=== PATIENT | female | born 1945 | race Caucasian/White ===

== ENCOUNTER 2020-05-20 06:54 | Outpatient (NON) | payer MEDICARE, SELFPAY ==
[2020-05-20 19:24] LABS: SARS-CoV-2 RNA PCR Positive
== END 2020-05-20 06:55 ==
PROVIDERS: Nurse Practitioner Family; PCP Family Medicine; Visit Provider Family Medicine
DX: U07.1 COVID-19 (principal)
CPT/HCPCS: C9803; U0003

== ENCOUNTER → 2020-06-23 11:33 | Outpatient (CLI) | payer MEDICARE, SELFPAY ==
--- NOTE | ~2020-06-23 | MM_ITS ---
EXAMINATION: MM screening [facility] BI w howie HISTORY: Screening mammogram TECHNIQUE: Craniocaudal and mediolateral oblique 3-D tomosynthesis images were obtained and synthetic 2-D images were generated. CAD analysis was submitted and interpreted. COMPARISON: 05/20/2019 diagnostic left digital mammogram and limited left breast ultrasound 05/05/2019, 05/01/2018, 04/28/2017, 05/04/2016, 02/25/2015, 02/23/2014 bilateral digital screening ma mmogram examinations BREAST PARENCHYMAL COMPOSITION: The breasts are heterogeneously dense, which may obscure small masses . FINDINGS: Stable mild fibroglandular asymmetry, without significant change since 02/23/2014. Occasion al benign calcifications. There is no evidence of suspicious mass, calcification, or architectural di stortion to suggest malignancy in either breast. There has been no suspicious interval change. IMPRESSION: 1. No mammographic evidence of malignancy. 2. Recommend routine screening mammography in one year. BI-RADS Category 2: Benign finding(s). Reviewed, dictated and finalized at location A. E FEEDER
== END ==
PROVIDERS: PCP Family Medicine; Visit Provider Physician Assistant
DX: Z12.31 Encounter for screening mammogram for malignant neoplasm of breast (principal)
CPT/HCPCS: 77063; 77067

== ENCOUNTER → 2021-07-13 09:51 | Outpatient (CLI) | payer MEDICARE, SELFPAY ==
--- NOTE | ~2021-07-13 | MM_ITS ---
EXAMINATION: MM screening [facility] BI w howie HISTORY: Screening mammogram TECHNIQUE: Craniocaudal and mediolateral oblique 3-D tomosynthesis images were obtained and synthetic 2-D images were generated. CAD analysis was submitted and interpreted. COMPARISON: 06/23/2020, 05/20/2019, 05/05/2019 BREAST PARENCHYMAL COMPOSITION: There are scattered areas of fibroglandular density. FINDINGS: There is no evidence of suspicious mass, calcification, or architectural distortion to sug gest malignancy in either breast. There has been no suspicious interval change. IMPRESSION: 1. No mammographic evidence of malignancy. 2. Recommend routine screening mammography in one year. BI-RADS Category 1: Negative Reviewed, dictated and finalized at location A. ER HEATER
== END ==
PROVIDERS: PCP Family Medicine; Visit Provider Family Medicine
DX: Z12.31 Encounter for screening mammogram for malignant neoplasm of breast (principal)
CPT/HCPCS: 77063; 77067

== ENCOUNTER → 2021-10-28 04:59 | Outpatient (CLI) | payer MEDICARE, SELFPAY ==
[2021-10-28 12:06] LABS: SARS-CoV-2 RNA PCR Negative
== END ==
PROVIDERS: Physician Assistant; PCP Family Medicine; Visit Provider Family Medicine
DX: J02.9 Acute pharyngitis, unspecified (principal); Z20.822 Contact with and (suspected) exposure to COVID-19
CPT/HCPCS: C9803; U0003; U0005

== ENCOUNTER → 2022-03-20 11:41 | Outpatient (CLI) | payer MEDICARE, SELFPAY ==
--- NOTE | ~2022-03-20 | XR_ITS ---
EXAM: XR knee RT min 4V DATE: 03/20/2022 12:00 HISTORY: twisted knee 2 weeks ago pain medial side . COMPARISON: None available. FINDINGS: Decreased mineralization. No fracture or dislocation. Mild medial joint space narrowing. T ricompartmental osteophytosis, moderate in the lateral and patellofemoral compartments. Mild lateral patellar subluxation. IMPRESSION: No acute osseous finding in the right knee Moderate tricompartmental right knee osteoarth ritis. Reviewed, dictated and finalized at location K. 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
== END ==
PROVIDERS: PCP Family Medicine; Visit Provider Nurse Practitioner Gerontology
DX: M25.561 Pain in right knee (principal)
CPT/HCPCS: 73564

== ENCOUNTER 2022-04-18 07:45 | Outpatient (CLI) | payer MEDICARE, SELFPAY ==
--- NOTE | ~2022-04-18 | US_ITS ---
US abdomen complete DATE: 04/18/2022 08:24 INDICATION: Abdominal pain, nausea and vomiting TECHNIQUE: Real-time imaging and Doppler analysis of the abdomen COMPARISON: None FINDINGS: No hepatic or pancreatic space-occupying mass lesion is detected. Normal hepatopedal portal venous flow. There is an approximately 7 mm rounded soft tissue density within the gallbladder lumen with mild sha dowing, consistent with gallstone or sludge concretion. No abnormal thickening of the gallbladder wal l, which measures approximately 1.6 mm thickness. Negative sonographic Sterling's sign. Common bile duct measures 5 mm, normal. Normal splenic size. No renal mass lesion or hydronephrosis is detected. Normal caliber of the abdominal aorta. The inferior vena cava is unremarkable. IMPRESSION: 7 mm gallstone or sludge concretion within the gallbladder lumen No gallbladder wall thickening, negative sonographic Sterling's Reviewed, dictated and finalized at Location A. Reviewed, dictated and finalized at location B. RAL STUDIES PROGRAM CHAIR
== END 2022-04-18 07:46 | disposition home or self-care (01) ==
PROVIDERS: PCP Family Medicine; Visit Provider Nurse Practitioner
DX: R10.13 Epigastric pain (principal); R11.2 Nausea with vomiting, unspecified; K21.9 Gastro-esophageal reflux disease without esophagitis; K82.9 Disease of gallbladder, unspecified
CPT/HCPCS: 76700

== ENCOUNTER 2022-05-01 10:32 | Day surgery (SDC) | payer MEDICARE, SELFPAY ==
[2022-04-11 08:09] VITALS: BMI 24.2
[2022-05-01 11:11] VITALS: BP 152/68; PULSE 72; RESP 16; TEMP 36.7; O2SAT 100; BMI 25.2
[2022-05-01] MEDS: LACTATED RINGERS 1,000 ML 150 ML IV CONT (11:30)
--- NOTE | 2022-05-01 11:31 | WPDANESEPPF ---
Anes - Initial Pre Proc Eval Procedure: Operation Date: 05/01/22 12:45 Proposed Procedures p Esophagogastroduodenoscopy - Den Modi MD s Diagnostic Colonoscopy - Den Modi MD Date/Time: 05/01/22 11:31 Surgeon: Den Modi MD Pre Op Diagnosis: Gerd, Nausea, Vomitting, Change in Bowel Habits Patient Data Age: 77 Gender: F Height: 1.52 m Weight: 58.7 kg Last Vital Signs Temp 36.7 C 05/01/22 11:11 Pulse 72 05/01/22 11:11 Resp 16 05/01/22 11:11 BP 152/68 H 05/01/22 11:11 Pulse Ox 100 05/01/22 11:11 O2 Del Method Room Air 05/01/22 11:11 Allergies Allergy/AdvReac Type Severity Reaction Status Date / Time No Known Allergies Allergy Verified 05/01/22 11:13 Home Medications Medication Instructions Recorded Confirmed Type cholecalciferol (vitamin D3) 50 50 mcg PO DAILY 11/08/20 04/25/22 History mcg (2,000 unit) capsule multivitamin 1 tablet PO DAILY 11/08/20 04/25/22 History red yeast rice 600 mg capsule 600 mg PO DAILY 11/08/20 04/25/22 History zinc 50 mg tablet 50 mg PO DAILY 11/08/20 04/25/22 History azelastine 137 mcg (0.1 %) nasal 1 spray intranasal Q12H #30 mL 02/23/22 04/25/22 Rx spray aerosol fluticasone propionate 50 2 spray intranasal DAILY #16 grams 02/23/22 04/25/22 Rx mcg/actuation nasal spray,suspension levothyroxine 50 mcg tablet See Rx Instructions .Route 02/23/22 04/25/22 Rx .COMPLEX #90 tabs losartan 25 mg tablet See Rx Instructions .Route 02/23/22 04/25/22 Rx .COMPLEX #90 tabs triamterene 37.5 See Rx Instructions .Route 02/23/22 04/25/22 Rx mg-hydrochlorothiazide 25 mg .COMPLEX #90 caps capsule omeprazole 20 mg capsule,delayed 40 mg PO DAILY 04/04/22 04/25/22 History release peg 3350-electrolytes 236 240 ml PO Q10M #4,000 mL 04/11/22 04/25/22 Rx gram-22.74 gram-6.74 gram-5.86 gram solution (Golytely) calcitonin (salmon) 200 See Rx Instructions .Route 04/24/22 04/25/22 Rx unit/actuation nasal spray .COMPLEX #11.1 mL Patient hx anesthesia problems: none Family hx anesthesia problems: none Results Review: All pre-operative results and documents have been reviewed as part of the pre-operative evaluation. [facility] Past Medical History Medical History Abdominal cramping Age related osteoporosis Arthritis of right knee Benign hypertension Benign reactive hypertension Change in bowel habits Colon cancer screening Compensated hypothyroidism Epigastric pain Gallstones Hypertensive kidney disease Lumbar spondylosis Mixed hyperlipidemia Nausea and vomiting Family History Family History Mother Family history of premature coronary heart disease, Onset Age: 67 Hypertension Family history of elevated blood lipids Family history of chronic obstructive pulmonary disease Patient's mother is Father Heart disease Family history of elevated blood lipids Social History Social History Social History: Smoking status: Never smoker Second hand tobacco smoke exposure: No Alcohol intake: current Substance use: never Substance use type: does not use Living arrangements: alone Gender identity (if verbalized by the patient): Female Sexual Orientation (if Verbalized by the Patient): Straight or Heterosexual Spiritual care concerns: No Anes - Eval Final PreProcedure Day of Procedure 05/01/22 11:31 Patient weight: normal Heart: regular rate and rhythm Lungs: clear to auscultation Airway: Mallampati scale class II Neurological: alert and oriented Last oral intake: >/= 8 hours ASA classification: II Emergent: no Anesthetic plan: proceed Anesthesia type and monitoring: general GIVS and standard monitoring Results Review: All pre-operative results and documents have been reviewed as part of the pre-opera
--- NOTE | 2022-05-01 11:58 | WPDHPUPDATE1 ---
History and Physical Update Update Date/Time: 05/01/22 11:58 History and Physical has been reviewed, including an updated exam of the patient. There are NO changes in the patient's condition. Risks, benefits, and alternatives have been discussed and questions answered. Patient agrees to proceed with procedure.
[2022-05-01 13:44] VITALS: BP 109/65; PULSE 76; RESP 16; O2SAT 100
[2022-05-01 13:54] VITALS: BP 105/81; PULSE 66; RESP 16; O2SAT 100
--- NOTE | 2022-05-01 13:57 | WPDANESPN ---
Anes - Prog Note Post-Op Date/Time: 05/01/22 13:57 Cardiovascular status: normal Respiratory status: normal Airway patency: baseline Mental status: baseline Post-Op hydration status: normal Vital Signs: Last Vital Signs Temp 36.7 C 05/01/22 11:11 Pulse 72 05/01/22 11:11 Resp 16 05/01/22 11:11 BP 152/68 H 05/01/22 11:11 Pulse Ox 100 05/01/22 11:11 O2 Del Method Room Air 05/01/22 11:11 Pain Score (VAS): 0/10 I/O: Intake & Output 04/30/22 05/01/22 05/01/22 23:59 07:59 15:59 Intake Total 900 Balance 900 Patient Feedback: Patient satisfied with anesthetic care.
[2022-05-01 14:04] VITALS: BP 135/65; PULSE 67; RESP 16; O2SAT 100
== END 2022-05-01 14:20 | disposition home or self-care (01) ==
PROVIDERS: PCP Family Medicine; Visit Provider Internal Medicine Gastroenterology
PROC: 0DJ08ZZ Inspection of Upper Intestinal Tract, Via Natural or Artificial Opening Endoscopic (ICD-10-PCS; CPT 43235; principal; 2022-05-01 12:45)
PROC: 0DJD8ZZ Inspection of Lower Intestinal Tract, Via Natural or Artificial Opening Endoscopic (ICD-10-PCS; CPT 45378; 2022-05-01 12:45)
DX: R19.4 Change in bowel habit (principal)
CPT/HCPCS: 45378; 43239

== ENCOUNTER → 2022-07-05 10:46 | Outpatient (CLI) | payer MEDICARE, SELFPAY ==
--- NOTE | ~2022-07-05 | XR_ITS ---
Supine views of the abdomen Clinical history: Constipation Findings: Bowel gas pattern is nonspecific. Moderate to large amount of stool present. Cholecystectom y clips noted. No evidence for obstruction or free air. No abnormal mass lesion or calcification is s een. Osseous structures are intact. Impression: Moderate to large amount of stool, consistent with constipation. Reviewed, dictated and finalized at location . 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
== END ==
PROVIDERS: PCP Family Medicine; Visit Provider Nurse Practitioner Gerontology
DX: K59.00 Constipation, unspecified (principal); R10.9 Unspecified abdominal pain
CPT/HCPCS: 74018

== ENCOUNTER → 2022-07-13 10:57 | Outpatient (CLI) | payer MEDICARE, SELFPAY ==
--- NOTE | ~2022-07-13 | DEXA_ITS ---
Bone Density Report Name: EDWIN LOYD Age: 77 Sex: Female Ethnicity: White Date of : 1945 Indication: osteopenia; height loss; postmenopausal Referring Provider: KRISHAN CORDOVA Study: Bone densitometry was performed. Exam Date: July 13, 2022 Accession number: [id number] Bone Density: Region BMD T-score Z-score Classification AP Spine (L1-L4) 1.086 0.4 2.8 Normal Femoral Neck (Left) 0.598 -2.3 -0.1 Osteopenia Total Hip (Left) 0.749 -1.6 0.3 Osteopenia Femoral Neck (Right) 0.615 -2.1 0.0 Osteopenia Total Hip (Right) 0.732 -1.7 0.1 Osteopenia Total Hip Mean 0.741 -1.7 0.2 Osteopenia World Health Organization criteria for BMD impression classify patients as: Normal (T-score at or above -1.0), Osteopenia (T-score between -1.0 and -2.5), or Osteoporosis (T-score at or below -2.5). 10-year Fracture Risk(1): Major Osteoporotic Fracture 16% Hip Fracture 4.6% Reported Risk Factors: [place] (), Neck BMD=0.598, BMI=25.3 (1) FRAX(R) Version 3.08. Fracture probability calculated for an untreated patient. Fracture probability may be lower if the patient has received treatment. Previous Exams: Region Exam Age BMD T-score BMD Change BMD Change Date g/cm2 vs Baseline vs Previous AP Spine(L1-L4) 07/13/2022 77 1.086 0.4 0.029* 0.029* 10/09/2018 73 1.057 0.1 Total Hip(Left) 07/13/2022 77 0.749 -1.6 -0.007 -0.007 10/09/2018 73 0.757 -1.5 Total Hip(Right) 07/13/2022 77 0.732 -1.7 -0.033* -0.033* 10/09/2018 73 0.765 -1.4 *Denotes significance at 95% confidence level, LSC for AP Spine = 0.022 g/cm2, LSC for Total Hip = 0.027 g/cm2 Clinical Information Provided by Patient: Has used the following medications: Vitamin D, Calcium Patient maximum height was 62 Menopause Age: 46 Drinks caffeinated beverages Onset of menses at age 13 Number of children 1 Impression: The patient has low bone mass, based on the Left Femoral Neck T-score. The patient has an estimated ten-year risk of hip fracture of 4.6% and an estimated ten-year risk of major fracture of 16%, based on the WHO FRAX algorithm. The BMD for the Total Hip(Right) decreased, changing by -0.033 since the last DXA exam. Discussion: BONE DENSITY IS LOW AT ONE OR MORE SKELETAL SITES. THE PATIENT'S BMD AND CLINICAL RISK FACTORS CONTRIBUTE TO THIS PATIENT'S INCREASED RISK OF FRACTURE. This patient's lowest
== END ==
PROVIDERS: PCP Family Medicine; Visit Provider Nurse Practitioner Gerontology
DX: Z78.0 Asymptomatic menopausal state (principal); M85.852 Other specified disorders of bone density and structure, left thigh; M85.851 Other specified disorders of bone density and structure, right thigh
CPT/HCPCS: 77080

== ENCOUNTER 2022-08-15 08:35 | Outpatient (CLI) | payer MEDICARE, SELFPAY ==
--- NOTE | ~2022-08-15 | NM_ITS ---
EXAM: NM gastric emptying study DATE: 08/15/2022 13:18 INDICATION: Daily nausea, vomiting, bloating and belching. TECHNIQUE: A gastric emptying study was performed using the methodology of Monserrat AGUILERA, et al. J Nucl Med 2007; 48:568-572. The patient was given a meal consisting of 2 scrambled eggs labeled with 1.0 m Ci Tc-99m sulfur colloid, 2 slices of toast, two packages of jam, and approximately 120 mL of water. Simultaneous anterior and posterior 1-min images of the abdomen were obtained with the patient supine at multiple time points over a total period of 4 hours. The geometric mean of anterior and posterior views was determined, and the percentage retention was calculated for each time point. COMPARISON: None. FINDINGS: Gastric retention of the radiotracer-labeled meal was 68%, 56%, and 35% at the 1-hour, 2-hour, and 4- hour time points, respectively. With this technique, apparent rapid gastric emptying is suggested by <30% gastric retention at 1 hour. Delayed gastric emptying is defined by gastric retention of >90% at 1 hour, >60% retention at 2 hours, or >10% retention at 4 hours. IMPRESSION: 1. Delayed gastric emptying. Reviewed, dictated and finalized at location A.
== END 2022-08-15 08:36 | disposition home or self-care (01) ==
PROVIDERS: PCP Family Medicine; Visit Provider Nurse Practitioner
DX: R11.2 Nausea with vomiting, unspecified (principal); R14.2 Eructation; R14.0 Abdominal distension (gaseous); K58.1 Irritable bowel syndrome with constipation; K21.9 Gastro-esophageal reflux disease without esophagitis; K30 Functional dyspepsia
CPT/HCPCS: 78264; A9541

== ENCOUNTER 2022-08-16 07:07 | Outpatient (CLI) | payer MEDICARE, SELFPAY ==
--- NOTE | ~2022-08-16 | CT_ITS ---
EXAMINATION: CT abdomen pelvis w con INDICATION: Nausea and vomiting TECHNIQUE: Computed tomographic images of the abdomen and pelvis were obtained after the administrati on of 100 cc of Omnipaque 350 intravenous contrast. The dose-length product (DLP) was 264.05 mGy-cm. Automated exposure control and iterative reconstruction technique were employed. COMPARISON: None available FINDINGS: Minimal dependent atelectasis is present in the lung bases. The heart size is normal. The g allbladder is surgically absent. There is a 7 mm hemangioma of the right hepatic lobe. There is a 10 mm cyst of the left hepatic lobe. Subtle areas of low attenuation in the spleen, measuring up to 4 mm , likely represent cysts or lymphangiomas. The pancreas and adrenal glands are normal. The kidneys ar e unremarkable. Colonic diverticulosis is present without evidence of diverticulitis. No pathological ly enlarged abdominal or pelvic lymph nodes are identified. No free intraperitoneal gas or evidence o f bowel obstruction. There is severe lumbar spondylosis. IMPRESSION: 1. No CT correlate for the patient's symptoms. Reviewed, dictated and finalized at location B.
[2022-08-16 07:29] LABS: Estimated Glomerular Filt Rate 54
== END 2022-08-16 07:08 | disposition home or self-care (01) ==
PROVIDERS: PCP Family Medicine; Visit Provider Nurse Practitioner
DX: K21.9 Gastro-esophageal reflux disease without esophagitis (principal); K58.1 Irritable bowel syndrome with constipation; R11.2 Nausea with vomiting, unspecified; R14.0 Abdominal distension (gaseous); R14.2 Eructation
CPT/HCPCS: 74177; Q9967

== ENCOUNTER → 2022-12-06 10:45 | Outpatient (CLI) | payer MEDICARE, SELFPAY ==
--- NOTE | ~2022-12-06 | MM_ITS ---
EXAMINATION: MM screening [facility] BI w howie HISTORY: Screening mammogram TECHNIQUE: Craniocaudal and mediolateral oblique 3-D tomosynthesis images were obtained and synthetic 2-D images were generated. CAD analysis was submitted and interpreted. COMPARISON: 07/13/2021, 06/23/2020, 05/20/2019, 05/05/2019 BREAST PARENCHYMAL COMPOSITION: There are scattered areas of fibroglandular density. FINDINGS: No suspicious mass, calcification, or architectural distortion are identified in either jessica ast to suggest malignancy. There has been no suspicious interval change. IMPRESSION: 1. No mammographic evidence of malignancy. 2. Recommend routine screening mammography in one year. BI-RADS Category 1: Negative Reviewed, dictated and finalized at location A.
== END ==
PROVIDERS: PCP Physician Assistant; Visit Provider Physician Assistant
DX: Z12.31 Encounter for screening mammogram for malignant neoplasm of breast (principal)
CPT/HCPCS: 77063; 77067

== ENCOUNTER 2023-06-01 09:40 | Outpatient (CLI) | payer MEDICARE, SELFPAY ==
--- NOTE | ~2023-06-01 | XR_ITS ---
XR knee RT min 4V DATE: 06/01/2023 10:30 INDICATION: Bursitis TECHNIQUE: Bertrand and standing AP, PA and lateral views COMPARISON: 03/20/2022 right knee FINDINGS: There is osteopenia. There is severe joint space narrowing and prominent periarticular spurring of the patellofemoral join t, particularly laterally. There is moderate periarticular spurring at the lateral compartment. Medial and lateral compartment j oint spaces are relatively preserved No fracture or dislocation or joint effusion. No periosteal reaction or bone destruction. No radiopaq ue intra-articular loose body or chondrocalcinosis. IMPRESSION: Osteoarthritis, severe at the patellofemoral joint Osteopenia Reviewed, dictated and finalized at location B. ER WORKER
== END 2023-06-01 09:41 | disposition home or self-care (01) ==
PROVIDERS: PCP Family Medicine; Visit Provider Orthopaedic Surgery
DX: M70.51 Other bursitis of knee, right knee (principal); M17.11 Unilateral primary osteoarthritis, right knee; M85.861 Other specified disorders of bone density and structure, right lower leg
CPT/HCPCS: 73564

== ENCOUNTER 2023-10-22 09:13 | Outpatient (CLI) | payer MEDICARE, SELFPAY ==
--- NOTE | ~2023-10-22 | US_ITS ---
EXAMINATION: US carotid duplex BI DATE: 10/22/2023 09:49 INDICATION: Negative TECHNIQUE: Grayscale, color Doppler, and pulsed Doppler images of the cervical carotid arteries were obtained. The degree of vessel stenosis is placed in one of the following categories: normal, <50%, 5 0-69%, >=70% but less than near-occlusion, near-occlusion, or total occlusion. Note that percent sten osis relative to normal distal artery lumen diameter is indirectly measured from velocity measurement s as described by Tadeo, et al. Radiology 2003; 229:340-346. Notes: Normal: Peak systolic velocity <125 centimeters/sec and no plaque <50%. Peak systolic velocity <125 ( EDV <40; ICA/CCA PSV ratio <2.0; used these factors only a tandem lesions or low cardiac output or co ntralateral disease) 50-69 %: PSV 125-230 (EDV 40-100; ratio 2-4) >= 70% but less than near occlusion: PSV greater than 230 (EDV > 100; ratio> 4.0) Near Occlusion: PSV that is variable; markedly narrowed lumen Occlusion: Absent flow on color/spectral Doppler and no lumen on michelle scale. COMPARISON: Ultrasound dated 11/16/2015. FINDINGS: RIGHT: The right common carotid artery (CCA) peak systolic velocity (PSV) is 121 cm/s. The right internal ca rotid artery (ICA) PSV is 98 cm/s. The right ICA end-diastolic velocity (EDV) is 34 cm/s. The right I CA/CCA PSV ratio is 0.8. The external carotid artery (ECA) PSV is 125 cm/s. There is antegrade flow i n the right vertebral artery. LEFT: The left CCA PSV is 124 cm/s. The left ICA PSV is 123 cm/s. The left ICA EDV is 34 cm/s. The left ICA /CCA PSV ratio is 1.0. The ECA PSV is 69 cm/s. There is antegrade flow in the left vertebral artery. IMPRESSION: 1. Less than 50% stenosis in the right internal carotid artery by sonographic criteria. 2. Less than 50% stenosis in the left internal carotid artery by sonographic criteria. Reviewed, dictated and finalized at location B. IMPRESSION: 1. Less than 50% stenosis in the right internal carotid artery by sonographic c riteria. 2. Less than 50% stenosis in the left internal carotid artery by sonographic cr iteria.
== END 2023-10-22 09:14 | disposition home or self-care (01) ==
PROVIDERS: PCP Family Medicine; Visit Provider Family Medicine
DX: R55 Syncope and collapse (principal); I65.23 Occlusion and stenosis of bilateral carotid arteries
CPT/HCPCS: 93880

== ENCOUNTER 2023-11-13 13:14 | Outpatient (CLI) | payer MEDICARE, SELFPAY ==
--- NOTE | 2023-11-13 13:20 | ECHO_ITS ---
Patient Info Name: Shannon Buitrago Age: 78 years : 1945 Gender: Female Ht: 60 in Wt: 132 lbs BSA: 1.61 m2 HR: 78 bpm BP: 143 / 80 mmHg Technical Quality: Good Exam Date: 11/13/2023 1:36 PM Exam Location: Echo Lab Patient Status: Outpatient Admit Date: 11/13/2023 Staff Ordering Physician: Mariia Llanos MD Scroll Assembler: Son Waddell RDCS Attending Provider: Mariia Llanos MD Referring Physician: Romi KC; Exam Type: CA echo doppler color flow Study Info Indications R55 - Syncope and collapse Complete two-dimensional, color flow and Doppler transthoracic echocardiogram is performed. Summary 1. Complete two-dimensional, color flow and Doppler transthoracic echocardiogram is performed. 2. Left ventricular chamber dimension is normal. 3. Left ventricular systolic function is normal, estimated at 60-65%. 4. The left ventricular diastolic function is normal. 5. E/e' 6 is not elevated. 6. There is mild mitral valve regurgitation. 7. There is trace tricuspid valve regurgitation. 8. No pulmonary hypertension, estimated pulmonary arterial systolic pressure is 13 mmHg. Left Ventricle E/e' 6 is not elevated. Left ventricular chamber dimension is normal. Left ventricular systolic function is normal, estimated at 60-65%. The left ventricular diastolic function is normal. Right Ventricle Right ventricular systolic function is normal and with normal TAPSE 2.1 cm. Right ventricular chamber dimension is normal. Left Atria Left atrial chamber dimension is normal. Right Atria Right atrial chamber dimension is normal. Aortic Valve The aortic valve is trileaflet. There is no aortic valve stenosis. There is no aortic valve regurgitation. Pulmonic Valve There is no pulmonic regurgitation. Mitral Valve There is no mitral valve stenosis. There is mild mitral valve regurgitation. Tricuspid Valve There is trace tricuspid valve regurgitation. No pulmonary hypertension, estimated pulmonary arterial systolic pressure is 13 mmHg. Pericardium/Pleural There is no pericardial effusion. Inferior Vena Cava Normal inferior vena cava with >50% collapse upon inspiration consistent with normal right atrial pressure, 5 mmHg. Aorta The aortic root size at the sinus of Valsalva is normal. Left Ventricular Outflow Tract Name Value Normal LVOT 2D LVOT Diameter 2.1 cm LVOT Doppler LVOT Peak Gradient 3 mmHg LVOT Mean Gradient 2 mmHg LVOT VTI 21 cm LVOT VTI/AV VTI Ratio 0.8 LVOT Stroke Volume 69 ml LVOT CO 5.0 l/min LVOT CI 3.1 l/min/m2 Pulmonic Valve Name Value Normal PV Doppler PV Peak Gradient 2 mmHg Mitral Valve Name
== END 2023-11-13 13:15 | disposition home or self-care (01) ==
LOC: ANHCARD 13:15
PROVIDERS: PCP Family Medicine; Visit Provider Family Medicine
DX: R55 Syncope and collapse (principal); I34.0 Nonrheumatic mitral (valve) insufficiency
CPT/HCPCS: 93306

== ENCOUNTER 2024-02-18 16:21 | Outpatient (CLI) | payer MEDICARE, SELFPAY ==
[2024-02-18 17:50] LABS: Influenza A QL RT-PCR Negative (Negative); Influenza B QL RT-PCR Negative (Negative); RSV RNA, RT-PCR Negative (Negative); SARS-CoV-2 RNA PCR Positive (Negative)
== END 2024-02-18 16:22 | disposition home or self-care (01) ==
LOC: ANHLAB 16:22
PROVIDERS: PCP Family Medicine; Visit Provider Physician Assistant
DX: J02.9 Acute pharyngitis, unspecified (principal)
CPT/HCPCS: 87637

== ENCOUNTER 2024-02-25 10:53 | Outpatient (CLI) | payer MEDICARE, SELFPAY ==
--- NOTE | ~2024-02-25 | MM_ITS ---
EXAMINATION: MM screening [facility] BI w howie HISTORY: Screening TECHNIQUE: Craniocaudal and mediolateral oblique 3-D tomosynthesis images were obtained and synthetic 2-D images were generated. CAD analysis was submitted and interpreted. COMPARISON: Comparison to multiple prior studies sequentially, with oldest reviewed study dated 04/13. BREAST PARENCHYMAL COMPOSITION: Not dense: There are scattered areas of fibroglandular density. FINDINGS: There is no evidence of suspicious mass, calcification, or architectural distortion to sugg est malignancy in either breast. There has been no suspicious interval change. IMPRESSION: 1. No mammographic evidence of malignancy. 2. Recommend routine screening mammography in one year. BI-RADS Category 1: Negative Reviewed, dictated and finalized at location B.
== END 2024-02-25 10:54 | disposition home or self-care (01) ==
PROVIDERS: PCP Physician Assistant; Visit Provider Physician Assistant
DX: Z12.31 Encounter for screening mammogram for malignant neoplasm of breast (principal)
CPT/HCPCS: 77063; 77067

== ENCOUNTER 2024-07-23 13:45 | Outpatient (CLI) | payer MEDICARE, SELFPAY ==
--- NOTE | ~2024-07-23 | XR_ITS ---
XR shoulder LT min 2V Ordering provider: Amy Reyes PA-C History: . M25.512 - Pain in left shoulder . Comparison: None. FINDINGS: BONES: No acute fracture or dislocation. JOINT SPACES: The acromioclavicular joint shows mild osteoarthritic changes. The glenohumeral joint i s normal. SOFT TISSUES: Normal. IMPRESSION: No acute osseous abnormality left shoulder. 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
--- OUTSIDE RECORDS SUMMARY | 2024-07-23 15:25 | XMS_ITS | Clinical Summary ---
Author Organization [facility] Address [address] [place] [id number] Care Team Providers Care Dental Surgery Doctor Name Role Phone Unavailable Primary Care Provider Unavailabl e Social History Tobacco Use Types Packs/Day Years Used Date Smoking Tobacco: Never Assessed Comments Unknown Sex and Gender Information Value Date Recorded Sex Assigned at Not on file Legal Sex Female 7:05 PM CDT Gender Identity Not on file Sexual Orientation Not on file Plan of Treatment Health Maintenance Due Date Last Done Comments Hepatitis C 1963 DTaP, Tdap and Td Vaccines ( 1 - Tdap) 1965 Zoster Vaccines (1 of 2) 1996 Dexa Scan (General) 2011 Pneumococcal Vaccine: 65+ Ye ars (1 of 1 - PCV) 2011 RSV Immunization or 60+ Years (1 - 1-dose 75+ series) 2021 COVID-19 Vaccine (2023-2 5 season) 2024 Influenza Adult (#1) 2024 Meningococcal B Vaccine Aged Out No l onger eligible based on patient's age to complete this topic Meningococcal Vaccine Aged Out No tate jacob eligible based on patient's age to complete this topic RSV Immunizations Under 20 Months Aged Out No longer eligible based on patient's age to complete this topic
--- OUTSIDE RECORDS SUMMARY | 2024-07-23 15:25 | XMS_ITS | Clinical Summary ---
Author Organization [employer] [id number] [facility] Address [address] [place] [address] Care Team Providers Care Spring Production Supervisor Name Role Phone Mariia Llanos MD Primary Care Provider [phone]- [phone] Allergies No known active allergies Medications losartan (COZAAR) 25 mg tablet daily. 2 Active levothyroxine 50 mcg tablet daily. 2 Active triamterene-hyd roCHLOROthiazid e (DYAZIDE) 37.5-25 mg capsule daily in the morning. 2 Active calcitonin, [place], (FORTICAL) 200 unit/actuation [place], Non-Aerosol daily. Alternating nostrils 2 Active cholecalciferol (vitamin D3) 50 mcg (2,000 unit) capsule Take by mouth daily. Active famotidine (PEPCID) 20 mg tablet Take 20 mg by mouth daily. Active rosuvastatin (CRESTOR) 5 mg tablet Take 5 mg by mouth daily. Active fluticasone propionate (FLONASE) 50 mcg/spray [place], Suspension nasal inhaler Administer 2 Sprays in each nostril daily. Active Active Problems Problem Noted Date Diagnosed Date Irritable bowel syndrome 03/21/2023 Biliary colic 06/01/2022 Biliary dyskinesia 06/01/2022 Gall stones 05/28/2022 Symptomatic cholelithiasis 05/27/2022 Colitis 05/27/2022 Hypertension 05/27/2022 Hypothyroidism 05/27/2022 GERD (gastroesophageal reflux disease) Leukocytosis (leucocytosis) 05/27/2022 Hyponatremia 05/27/2022 Abdominal pain 05/27/2022 Vitiligo 03/13/2016 Basal cell carcinoma (BCC) of upper extremity Skin neoplasm 08/25/2015 Encounters Date Type Department Care Team Description 07/08/2024 External Device Data [facility] ABSTRACTION Provider, Abstract 06/17/2024 External Device Data [facility] ABSTRACTION Provider, Abstract 06/04/2024 External Device Data [facility] ABSTRACTION Provider, Abstract 06/03/2024 External Device Data [facility] ABSTRACTION Provider, Abstract 05/27/2024 External Device Data [facility] ABSTRACTION Provider, Abstract 05/20/2024 External Device Data [facility] ABSTRACTION Provider, Abstract from Last 3 Months Family History Medical History Relation Name Comments Heart Disease Father High Cholesterol Father Other Father COPD Heart Disease Mother High Cholesterol Mother Hypertension Mother Relation Name Status Comments Father Mother Social History Tobacco Use Types Packs/Day Years Used Date Smoking Tobacco: Never Smokeless Tobacco: Never Tobacco Cessation:Counseling Given: Not Answered Alcohol Use Standard Drinks/Week Comments Yes 1 (1 standard drink = 0.6 oz pur e alcohol) Comments No Sex and Gender Information Value Date Recorded Sex Assigned at Not on file Legal Sex Female 3:56 PM [employer] Gender Identity Not on file Sexual Orientation Not on file Last Filed Vital Signs Vital Sign Reading Time Taken Comments Blood Pressure 141/88 07/30/2023 2:27 PM CDT Pulse 77 07/30/2023 2:27 PM CDT Temperature 36.4 C (97.5 F) 07/30/2023 2:27 PM CDT Respiratory Rate 15 06/07/2022 12:10 PM [employer] Oxygen Saturation 98% 07/30/2023 2:27 PM CDT Inhaled Oxygen Concentration - - Weight 58 kg (127 lb 12.8 oz) 07/30/2023 2:27 PM CDT Height 152.4 cm (5') 07/30/2023 2:27 PM CDT Body Mass Index 24.96 07/30/2023 2:27 PM CDT Plan of Treatment Health Maintenance Due Date Last Done Comments DTAP/TDAP/TD VACCINES (1 - Tdap) 1965 PNEUMOCOCCAL VACCINE 50+ YEARS (1 of 1 - PCV) 03/28/19 96 ZOSTER VACCINE (1 of 2) 1996 OSTEOPOROSIS SCREENING 2011 RSV VACCINE (60+ or ) (1 - 1-dose 75+ series) 2021 INFLUENZA VACCINE (#1) 2023 Medical Devices Implanted Type Area Aviation Project Engineer Device Identifier Shelf Expiration Date Model / Serial / Lot Clip Ti Med/Lg [id number] - Csc - [id number] Implanted:Qty: 3 on 06/07/2022 by Den Barrow DO at [facility] N/A: Abdomen TELEFLEX- WECK CLOSURE SYS 11/27/2026 [id number] / / [id number] Insurance [employer]ET[employer] PPO MCR RX OPTUM RX Member Subscriber Plan / Payer (Ef fective 2022-Present) Name:Shannon Buitrago Relation to Subscriber:Self Name:MinnaGaylara Subscriber ID:Not on file Payer ID:Not on file Group ID:[id number] Type:RX Medicare Part D Address: [address] Advance Directives For more information, please contact: [phone] Documents on File Type Date Recorded Patient Restaurant Assistant Manager Expl anation Advance Directive POA 06/05/2022 8:19 AM A dvance Directive POA * Full Code (Latest Code Status on File) Date Activated Date Inactivated Comments 05/27/2022 6:55 AM 05/28/2022 8:15 PM Care Teams Spring Production Supervisor Relationship Specialty Start Date End Date Mariia Llanos MD PCP - General Family Practice 05/25/22
--- OUTSIDE RECORDS SUMMARY | 2024-07-23 15:25 | XMS_ITS ---
Author Organization [facility] [id number] [facility] Address [address] [place] [address] Care Team Providers Care Supervisor Wet Pour Name Role Phone Mariia Llanos MD Primary Care Provider [phone]- [phone] Active Problems Problem Noted Date Diagnosed Date Irritable bowel syndrome 03/21/2023 Biliary colic 06/01/2022 Biliary dyskinesia 06/01/2022 Gall stones 05/28/2022 Symptomatic cholelithiasis 05/27/2022 Colitis 05/27/2022 Hypertension 05/27/2022 Hypothyroidism 05/27/2022 GERD (gastroesophageal reflux disease) Leukocytosis (leucocytosis) 05/27/2022 Hyponatremia 05/27/2022 Abdominal pain 05/27/2022 Vitiligo 03/13/2016 Basal cell carcinoma (BCC) of upper extremity Skin neoplasm 08/25/2015 Current Treatment and Therapy Plans No current plan information found. Past Treatment and Therapy Plans No past plan information found. Lifetime Dose Tracking * Chemical Lifetime Dose Automatic Entry Manual Entr y Effective Dose 13.7 mSv 13.7 mSv 0 mSv Total DLP 815 DLP 815 DLP 0 DLP CTDIvol Max 16.9 mGy 16.9 mGy 0 mGy CTDIvol Min 16.9 mGy 16.9 mGy 0 mGy
== END 2024-07-23 13:46 | disposition home or self-care (01) ==
PROVIDERS: PCP Family Medicine; Visit Provider Physician Assistant Medical
DX: M19.012 Primary osteoarthritis, left shoulder (principal)
CPT/HCPCS: 73030

== ENCOUNTER 2024-12-08 10:42 | Outpatient (CLI) | payer MEDICARE, SELFPAY ==
--- NOTE | ~2024-12-08 | DEXA_ITS ---
Bone Density Report Name: EDWIN LYOD Age: 79 Sex: Female Ethnicity: White Date of : 1945 Indication: osteopenia; monitoring treatment; height loss; Referring Provider: KRISHAN MILLER Study: Bone densitometry was performed. Exam Date: December 08, 2024 Accession number: [id number] Bone Density: Region BMD T-score Z-score Classification AP Spine(L1-L4) 1.106 0.5 3.1 Normal Femoral Neck (Left) 0.591 -2.3 -0.1 Osteopenia Total Hip (Left) 0.719 -1.8 0.2 Osteopenia Femoral Neck (Right) 0.598 -2.3 0.0 Osteopenia Total Hip (Right) 0.723 -1.8 0.2 Osteopenia Total Hip Mean 0.721 -1.8 0.2 Osteopenia World Health Organization criteria for BMD impression classify patients as: Normal (T-score at or above -1.0), Osteopenia (T-score between -1.0 and -2.5), or Osteoporosis (T-score at or below -2.5). 10-year Fracture Risk: FRAX not reported because: Treated for osteoporosis Previous Exams: -- Region Exam Age BMD T-score BMD Change BMD Change Date g/cm2 vs Baseline vs Previous -- AP Spine (L1-L4) 12/08/2024 79 1.106 0.5 4.6%* 1.8% 07/13/2022 77 1.086 0.4 2.8%* 2.8%* 10/09/2018 73 1.057 0.1 Total Hip(Left) 12/08/2024 79 0.719 -1.8 -5.0%* -4.1%* 07/13/2022 77 0.749 -1.6 -1.0% -1.0% 10/09/2018 73 0.757 -1.5 Total Hip(Right) 12/08/2024 79 0.723 -1.8 -5.6%* -1.3% 07/13/2022 77 0.732 -1.7 -4.3%* -4.3%* 10/09/2018 73 0.765 -1.4 -- *Denotes significance at 95% confidence level, LSC for AP Spine = 0.022 g/cm2, LSC for Total Hip = 0.027 g/cm2 Clinical Information Provided by Patient: Is being treated for osteoporosis Has used the following medications: Fosamax (i.e. alendronate), Vitamin D, Calcium Patient maximum height was 62 Menopause Age: 46 Drinks caffeinated beverages Onset of menses at age 11 Number of children 1 Impression: The patient has low bone mass, based on the Left Femoral Neck T-score. The BMD for the Total Hip(Left) decreased, changing by -4.1% since the last DXA exam. Discussion: SIGNIFICANT BONE LOSS OBSERVED. Adherence to therapy (including calcium and vitamin D intake) should be assessed. If compliance is not a factor, review management and exclusion of secondary causes of bone loss. It is important to ask patients whether they are taking their medications and to encourage continued and appropriate compliance with their osteoporosis therapies to reduce fracture risk. It is also important to review their risk factors and encourage appropriate calcium and vitamin D intakes, exercise, fall prevention and other lifestyle measures. Follow-Up: Consider a repeat BMD and Vertebral Fracture Assessment (VFA) exam in 2 years or sooner if medically necessary, to reassess this patient's status. Reported by: RASHIDA on 12/08/2024 11:02:00 AM. Reviewed, dictated and finalized at location A.
== END 2024-12-08 10:43 | disposition home or self-care (01) ==
LOC: MICIMG 10:43
PROVIDERS: PCP Family Medicine; Visit Provider Physician Assistant Medical
DX: M85.89 Other specified disorders of bone density and structure, multiple sites (principal); Z78.0 Asymptomatic menopausal state
CPT/HCPCS: 77080